=== PATIENT | female | born 1990 | race Caucasian/White ===

== ENCOUNTER 2017-11-05 21:43 | Inpatient (IN) | payer BC ==
[~2017-11-05] VITALS: Ht 177.8 cm; Wt 73.2 kg
[2017-11-05] MEDS ORDERED: OXYTOCIN 30U/ 0.9% NaCL 500ML 500 ML IV ONE (23:23)
[2017-11-05] MEDS ORDERED: OXYTOCIN 30U/ 0.9% NaCL 500ML 500 ML ONE (23:28)
[2017-11-05] MEDS ORDERED: LIDOCAINE 1%, 20ML ONE (23:28)
[2017-11-05] MEDS ORDERED: NEWBORN KIT ONE (23:28)
[2017-11-05] MEDS ORDERED: MISOPROSTOL 200 MCG TABLET ONE (23:28)
[2017-11-05] MEDS ORDERED: FENTANYL PF 100 MCG/2ML ONE (23:28)
[2017-11-05] MEDS ORDERED: FENTANYL PF 100 MCG/2ML IVPush PRN (23:30)
[2017-11-05] MEDS ORDERED: METOCLOPRAMIDE 5 MG/ML, 2ML IVPush PRN (23:30)
[2017-11-05] MEDS ORDERED: SODIUM CITRATE/CITRIC ACID 30 ML UDC PO PRN (23:30)
[2017-11-05] MEDS ORDERED: FENTANYL PF 100 MCG/2ML IV PRN (23:30)
[2017-11-05] MEDS ORDERED: TERBUTALINE 1 MG/ML, 1ML IVPush PRN (23:30)
[2017-11-05] MEDS ORDERED: ONDANSETRON 2MG/ML, 2ML IVPush PRN (23:30)
[2017-11-05] MEDS ORDERED: CALCIUM CARBONATE 500 MG TAB.CHEW PO PRN (23:30)
[2017-11-05] MEDS: LACTATED RINGERS 1,000 ML IV SCH (23:36)
[2017-11-05 23:42] VITALS: BP 133/87
[2017-11-05 23:48] LABS: MEAN CORPUSCULAR HEMOGLOBIN 30.8 pg (27.0-34.8); MEAN CORPUSCULAR HGB CONC 33.4 g/dL (32.4-35.8); MEAN CORPUSCULAR VOLUME 92.3 fL (80-100); PLATELET COUNT 242 x10^3/uL (130-400); RED BLOOD COUNT 4.28 x10^6/uL (3.82-5.3); RED CELL DISTRIBUTION WIDTH 14.3 % (9.6-15.2)
[2017-11-06 00:08] LABS: BASOPHILS # (AUTO) 0.06 x10^3/uL (0-0.1); BASOPHILS % (AUTO) 0 % (0-1); EOSINOPHILS # (AUTO) 0.13 x10^3/uL (0-0.4); EOSINOPHILS % (AUTO) 1 % (1-7); LYMPHOCYTES % (AUTO) 18 % (22-44); MD SCAN; MONOCYTES # (AUTO) 1.08 x10^3/uL (0.2-0.8); MONOCYTES % (AUTO) 6 % (2-9); NEUTROPHILS # (AUTO) 14.08 x10^3/uL (1.8-6.8); NEUTROPHILS % (AUTO) 75 % (42-75)
[2017-11-06] MEDS: LACTATED RINGERS 1,000 ML IV SCH (00:54)
[2017-11-06] MEDS ORDERED: LIDOCAINE-MPF 2% ,5ML ONE (01:02)
[2017-11-06] MEDS ORDERED: FENTANYL/BUPIV./NS/PF 250 ML EPIDCONT ONE (01:02)
[2017-11-06] MEDS ORDERED: LACTATED RINGERS 1,000 ML IV SCH (01:38)
[2017-11-06] MEDS ORDERED: FENTANYL/BUPIV./NS/PF 250 ML EPIDCONT SCH (01:38)
[2017-11-06] MEDS ORDERED: EPHEDRINE 50 MG/ML, 1ML IVPush PRN (02:00)
[2017-11-06] MEDS ORDERED: NALOXONE 0.4 MG/ML, 1ML IVPush PRN (02:00)
[2017-11-06] MEDS ORDERED: LACTATED RINGERS 1,000 ML IVBOLUS PRN (02:00)
[2017-11-06] MEDS: D5%-LACTATED RINGERS 1,000 ML IV SCH ×2 (03:13→07:23)
[2017-11-06] MEDS ORDERED: ONDANSETRON 2MG/ML, 2ML ONE (04:57)
[2017-11-06] MEDS: OXYTOCIN 30U/ 0.9% NaCL 500ML 500 ML IV SCH ×2 (05:42→15:18)
[2017-11-06] MEDS ORDERED: IBUPROFEN 600 MG TABLET ONE ×2 (05:58→06:01)
[2017-11-06] MEDS: IBUPROFEN 600 MG TABLET PO PRN ×3 (05:59→17:58)
[2017-11-06] MEDS ORDERED: OXYcodone/APAP 5/325MG TABLET PO PRN ×2 (06:00)
[2017-11-06] MEDS ORDERED: GLYCERIN ADULT SUPP PR PRN (06:00)
[2017-11-06] MEDS ORDERED: BISACODYL 10 MG SUPP PR PRN (06:00)
[2017-11-06] MEDS ORDERED: METOCLOPRAMIDE 5 MG/ML, 2ML IV PRN (06:00)
[2017-11-06] MEDS ORDERED: CARBOPROST TROMETHAMINE 250 MCG/ML, 1ML IM PRN (06:00)
[2017-11-06] MEDS ORDERED: ACETAMINOPHEN 325 MG TABLET PO PRN (06:00)
[2017-11-06] MEDS ORDERED: MISOPROSTOL 200 MCG TABLET PR PRN (06:00)
[2017-11-06] MEDS ORDERED: IBUPROFEN 800 MG TABLET PO PRN (06:00)
[2017-11-06] MEDS ORDERED: ONDANSETRON 2MG/ML, 2ML IV PRN (06:00)
[2017-11-06] MEDS ORDERED: METHYLERGONOVINE 0.2 MG/ML IM PRN (06:00)
[2017-11-06] MEDS: PRENATAL VIT/IRON/FA 1 EACH TABLET PO SCH (09:00)
[2017-11-06 09:15] VITALS: BP 120/71
[2017-11-06 12:17] VITALS: BP 117/73
[2017-11-06 13:57] LABS: MEAN CORPUSCULAR HEMOGLOBIN 30.8 pg (27.0-34.8); MEAN CORPUSCULAR HGB CONC 33.4 g/dL (32.4-35.8); MEAN CORPUSCULAR VOLUME 92.3 fL (80-100); PLATELET COUNT 209 x10^3/uL (130-400); RED BLOOD COUNT 3.96 x10^6/uL (3.82-5.3); RED CELL DISTRIBUTION WIDTH 14.5 % (9.6-15.2)
[2017-11-06 15:45] LABS: MD YES
[2017-11-06 15:49] LABS: BAND#(MANUAL) 3.19 x10^3/uL; BANDS%(MANUAL) 12 % (0-7); LYMPH#(MANUAL) 4.26 x10^3/uL (1-3.4); LYMPHS% (MANUAL) 16 % (22-44); MONOS% (MANUAL) 6 % (2-9); SEGS% (MANUAL) 66 % (42-75)
[2017-11-06 15:52] LABS: <PLATELET ESTIMATE> ADEQUATE; <PLT MORPHOLOGY> NORMAL PLT MORPH; <RBC MORPHOLOGY> NORMAL
[2017-11-06 16:24] VITALS: BP 128/79
[2017-11-06] MEDS: DOCUSATE 100 MG CAPSULE PO PRN (19:05)
[2017-11-06 19:07] VITALS: BP 119/78
[2017-11-07 00:03] VITALS: BP 107/63
[2017-11-07] MEDS: OXYTOCIN 30U/ 0.9% NaCL 500ML 500 ML IV SCH (01:42)
[2017-11-07 07:40] VITALS: BP 123/80
[2017-11-07] MEDS ORDERED: IBUP-1223 PO (08:22)
[2017-11-07] MEDS ORDERED: PREN1TAB79 PO (08:24)
[2017-11-07] MEDS: DOCUSATE 100 MG CAPSULE PO PRN (09:14)
[2017-11-07] MEDS: PRENATAL VIT/IRON/FA 1 EACH TABLET PO SCH (09:14)
[2017-11-07] MEDS: IBUPROFEN 600 MG TABLET PO PRN ×2 (09:15)
== END 2017-11-07 17:05 | disposition home or self-care (01) | DRG 775 ==
LOC: LDOP 21:43 → EDIP 23:24 → LDIP 23:28 → 2NW 11-06 09:16
PROVIDERS: ADMIT Student in an Organized Health Care Education/Training Program; ATTEND Student in an Organized Health Care Education/Training Program
PROC: 10E0XZZ Delivery of Products of Conception, External Approach (ICD-10-PCS; principal; 2017-11-06)
PROC: 0KQM0ZZ Repair Perineum Muscle, Open Approach (ICD-10-PCS; 2017-11-06)
PROC: 3E0R3BZ Introduction of Anesthetic Agent into Spinal Canal, Percutaneous Approach (ICD-10-PCS; 2017-11-06)
PROC: 00HU33Z Insertion of Infusion Device into Spinal Canal, Percutaneous Approach (ICD-10-PCS; 2017-11-06)
PROC: 0W8NXZZ Division of Female Perineum, External Approach (ICD-10-PCS; 2017-11-06)
DX: O76 Abnormality in fetal heart rate and rhythm complicating labor and delivery (principal); O70.1 Second degree perineal laceration during delivery; Z3A.39 39 weeks gestation of pregnancy; Z37.0 Single live birth
CPT/HCPCS: 36415; 85025; 86850; 86900; J3010; J7120; J7121